=== PATIENT | female | born 1960 | race Caucasian/White ===

== ENCOUNTER → 2021-08-30 10:36 | Outpatient (CLI) | payer BC, SELFPAY ==
--- NOTE | ~2021-08-30 | US_ITS ---
US abdomen complete DATE: 08/30/2021 11:08 INDICATION: Right upper quadrant abdominal pain TECHNIQUE: Real-time imaging and Doppler analysis of the abdomen COMPARISON: None FINDINGS: The gallbladder is surgically absent. Approximately 6 mm cyst of the left hepatic lobe. No hepatic space-occupying mass lesion is evident. Normal hepatopedal portal venous flow direction. The common bile duct measures 2.6 mm, normal. No pancreatic mass lesion or ductal dilatation. No renal mass lesion or hydronephrosis is noted. Normal splenic size. Normal caliber of the abdominal aorta. The inferior vena cava is unremarkable. IMPRESSION: Status post cholecystectomy 6 mm left hepatic cyst Reviewed, dictated and finalized at [facility]. Reviewed, dictated and finalized at [facility]. N TWIRLER
== END ==
PROVIDERS: PCP Hospitalist; Visit Provider Hospitalist
DX: R10.11 Right upper quadrant pain (principal); Z90.49 Acquired absence of other specified parts of digestive tract; K76.0 Fatty (change of) liver, not elsewhere classified
CPT/HCPCS: 76700

== ENCOUNTER → 2021-09-01 10:19 | Outpatient (CLI) | payer SELFPAY ==
--- NOTE | ~2021-09-01 | CT_ITS ---
EXAMINATION: CT abdomen w con INDICATION: Right upper quadrant pain TECHNIQUE: Computed tomographic images of the abdomen were obtained after the administration of 100 c c of Omnipaque 350 intravenous contrast. The dose-length product (DLP) was 335.3 mGy-cm. Automated ex posure control and iterative reconstruction technique were employed. COMPARISON: None available FINDINGS: Calcified pulmonary nodules are consistent with old granulomatous disease. The heart size i s normal. There is a small sliding hiatal hernia. The gallbladder is surgically absent. There is mild enlargement of the common bile duct and central intrahepatic ducts which is likely due to post cindy cystectomy state. Cysts of the liver measure up to 9 mm in the right hepatic lobe. Punctate calcifica tions in an otherwise normal spleen likely represent healed granulomatous disease. The pancreas and a drenal glands are normal. There are no pathologically enlarged abdominal lymph nodes. Hypoattenuating lesions in the kidneys, measuring up to 5 mm on the right, are too small to characterize but likely represent cysts. There are no pathologically enlarged abdominal lymph nodes. No dilated loops of wicho l are present. IMPRESSION: 1. No CT correlate for the patient's symptoms. Reviewed, dictated and finalized at [facility]. [employer]PERATOR HELPER
[2021-09-01 10:49] LABS: Estimated Glomerular Filt Rate > 60
== END ==
PROVIDERS: PCP Hospitalist; Visit Provider Hospitalist
DX: R10.11 Right upper quadrant pain (principal)
CPT/HCPCS: 74160; Q9967

== ENCOUNTER → 2022-03-10 09:54 | Outpatient (CLI) | payer SELFPAY ==
--- NOTE | ~2022-03-10 | CT_ITS ---
EXAMINATION:CT diagnostic chest wo con DATE: 03/10/2022 10:14 INDICATION: Lung nodule. TECHNIQUE: Computed tomography (CT) of the chest was performed without intravenous contrast. Automate d exposure control and iterative reconstruction technique were employed. The dose-length product (DLP ) was 55.49 mGy-cm. COMPARISON: CT abdomen 09/01/2021 FINDINGS: There is mild scarring at the lung apices. Calcified right lung nodules and calcified right hilar lymph nodes are consistent with old granulomatous disease. No pleural effusion. The heart size is normal. No pericardial effusion. There is a small sliding hiatal hernia. There are changes of cho lecystectomy. There is mild thoracic spondylosis. IMPRESSION: 1. No suspicious lung nodule. Reviewed, dictated and finalized at [facility].
== END ==
PROVIDERS: PCP Hospitalist; Visit Provider Hospitalist
DX: R91.1 Solitary pulmonary nodule (principal)
CPT/HCPCS: 71250

== ENCOUNTER 2023-01-12 14:44 | Emergency (ER) | payer BC, SELFPAY ==
--- NOTE | ~2023-01-12 | XR_ITS ---
EXAMINATION: XR toe 1st RT min 2V DATE: 01/12/2023 15:09 INDICATION: Right great toe injury. TECHNIQUE: 3 views of right great toe were obtained. COMPARISON: None. FINDINGS: Bone alignment is normal. There is a nondisplaced extra-articular oblique fracture of first distal phalanx. There is mild osteoarthritis of first metatarsophalangeal joint. IMPRESSION: 1. Nondisplaced extra-articular oblique fracture of first distal phalanx. Reviewed, dictated and finalized at location [facility].
--- NOTE | 2023-01-12 14:50 | ED.LOWEXIN ---
HPI - Extremity Injury (Lower) General Chief Complaint: Extremity Injury, Lower Stated Complaint: right big toe dropped weight on it Time Seen by Provider: 01/12/23 14:51 Source: patient and RN notes reviewed History of Present Illness HPI Narrative: Patient is a 62-year-old female who presents to urgent care with complaints of right great toe pain. Patient states that this morning she dropped a 3 lb weight on the right great toe. Patient took ibuprofen today for the pain. No other acute complaints or injuries. No acute distress noted. Patient aware of the plan of care. Some parts of this dictation were generated by voice recognition software and may contain typographical and/or grammatical inaccuracies. Related Data Home Medications Medication Instructions Recorded Confirmed lorazepam 0.5 mg tablet 0.5 mg PO DAILY 01/12/23 01/12/23 Allergies Allergy/AdvReac Type Severity Reaction Status Date / Time Antihistamines - Alkylamine AdvReac Unknown Verified 01/12/23 14:57 Review of Systems Review of Systems: CONSTITUTIONAL: Denies fever, chills, or sweats. EYES: Denies visual changes, redness, or discharge. ENT: Denies rhinorrhea, congestion, sore throat, or otalgia. CARDIOVASCULAR: Denies chest pain, palpitations, or edema. RESPIRATORY: Denies cough or dyspnea. GASTROINTESTINAL: Denies abdominal pain, nausea, vomiting, or diarrhea. GENITOURINARY: Denies dysuria or hematuria. SKIN: Denies rash or itching. MUSCULOSKELETAL: Reports of right great toe pain due to trauma NEUROLOGIC: Denies headache, numbness, or weakness. All other systems reviewed are negative, except as documented in HPI. [facility] Family History Family History (Updated 03/07/19 @ 15:25 by DOCTOR UNKNOWN) Mother Family history of thyroid disease Hypertension Sibling Family history of thyroid disease Grandparent Diabetes mellitus Other Family history of lung cancer Social History Social History Smoking status: Current every day smoker Alcohol intake: never Comments At the time of my signature, I reviewed and agree with the nursing past medical, surgical, social, and family history. There is no relevant family history pertinent to the patient complaint. Exam Narrative: GENERAL: This is a well-nourished, well-developed patient, in no apparent distress. HEAD: normocephalic, atraumatic. EYES: PERRL. Sclera clear/white. Vision is grossly intact. EARS: External ears normal NOSE: External nose normal with no obvious nasal discharge, nares without redness, no rhinorrhea. THROAT: Mucous membranes moist NECK: Neck supple SKIN: warm, intact with no suspicious lesions or rash, good texture and turgor. NEURO: awake, alert, and oriented to person, place and time. There were no obvious focal neurologic abnormalities. EXTREMITIES: No ecchymosis edema or erythema noted to the right great toe. Moderate tenderness to the distal aspect. No obvious deformity. Positive strong right pedal pulse with capillary refill less than 2 seconds. Range of motion not tested due to pain Course Course Level of Care: Express Care Visit Vital Signs Vital signs: Vital Signs Temperature 98.8 F 01/12/23 14:54 Pulse Rate 85 01/12/23 14:54 Respiratory Rate 01/12/23 14:54 Blood Pressure 135/82 01/12/23 14:54 Pulse Oximetry 100 01/12/23 14:54 Oxygen Delivery Room Air 01/12/23 14:54 Temperature 98.8 F 01/12/23 14:54 Pulse Rate 85 01/12/23 14:54 Respiratory Rate 01/12/23 14:54 Blood Pressure 135/82 01/12/23 14:54 Pulse Oximetry 100 01/12/23 14:54 Oxygen Delivery Room Air 01/12/23 14:54 Reviewed MDM - Extremity Injury (Lower) MDM Narrative Medical decision making narrative: Reviewed x-ray results with the patient. She is aware x-ray does show a nondisplaced fracture of the right great toe. Advised patient to wear the postop shoe until follow-up with the orthopedic. Our facility can give used
[2023-01-12 14:54] VITALS: BP 135/82; PULSE 85; RESP 20; TEMP 37.1; O2SAT 100
== END 2023-01-12 15:34 | disposition home or self-care (01) ==
PROVIDERS: Emergency Provider Nurse Practitioner Family; PCP Hospitalist
DX: S92.424A Nondisplaced fracture of distal phalanx of right great toe, initial encounter for closed fracture (principal); W20.8XXA Other cause of strike by thrown, projected or falling object, initial encounter; Y93.9 Activity, unspecified; F17.200 Nicotine dependence, unspecified, uncomplicated
CPT/HCPCS: 73660; 99203; G0463